=== PATIENT | female | born 1965 | race Caucasian/White ===

== ENCOUNTER 2023-10-16 19:53 | Emergency (ER) | payer OTHER | END 2023-10-16 20:00 | disposition left against medical advice (07) | LOC: SED 19:53 | DX: S01.112A Laceration without foreign body of left eyelid and periocular area, initial encounter (principal); Z79.899 Other long term (current) drug therapy; X58.XXXA Exposure to other specified factors, initial encounter; Y93.89 Activity, other specified; Y92.89 Other specified places as the place of occurrence of the external cause; Y99.8 Other external cause status | CPT/HCPCS: 99281 ==

== ENCOUNTER 2024-02-06 13:18 | Emergency (ER) | payer OTHER, MEDICAID ==
[~2024-02-06] VITALS: Ht 162.6 cm; Wt 72.6 kg
[2024-02-06 13:26] VITALS: BP_SYST 171; PULSE 106; RESP 18; TEMP 98.3; O2SAT 94
[2024-02-06] MEDS: MIDAZOLAM HCL 5 MG/5 ML VIAL IM ONE (14:41)
[2024-02-06] MEDS: OLANZapine IntraMuscular 10 MG VIAL (FOR I.M. INJECTION ONLY) IM ONE (14:42)
[2024-02-06] MEDS: MIDAZOLAM HCL 5 MG/ML VIAL (VERSED) IV ONE (14:43)
[2024-02-06 15:25] LABS: BILIRUBIN,URINE NEGATIVE (NEGATIVE); BLOOD, URINE NEGATIVE (NEGATIVE); CLARITY/URINE CLEAR (CLEAR); COLOR,URINE YELLOW (YELLOW); GLUCOSE,URINE NEGATIVE (NEGATIVE); KETONES,URINE 2+ (NEGATIVE); LEUKOCYTE ESTERASE ,URINE 1+ (NEGATIVE); NITRITE, URINE NEGATIVE (NEGATIVE); PROTEIN URINE TRACE (NEGATIVE); UROBILINOGEN,URINE 0.2 (0.2-1.0)
[2024-02-06 15:43] LABS: BASOPHILS # (AUTO) 0.1 K/uL (0.0-0.2); BASOPHILS % (AUTO) 0.6 % (0.0-2.0); HEMATOCRIT 39.5 % (36-48); HEMOGLOBIN 13.2 g/dL (12.0-16.0); LYMPHOCYTES # (AUTO) 0.8 K/uL (1.0-5.5); LYMPHOCYTES % (AUTO) 9.1 % (20.5-51.5); MEAN CORPUSCULAR HEMOGLOBIN 32 pg (27-31); MEAN CORPUSCULAR HGB CONC 33 % (32-36); MEAN CORPUSCULAR VOLUME 94 fL (79.0-98.0); MONOCYTES # (AUTO) 0.4 K/uL (0.0-1.0); MONOCYTES % (AUTO) 4.2 % (1.7-9.3); NEUTROPHILS # (AUTO) 7.3 K/uL (1.8-7.7); NEUTROPHILS % (AUTO) 86.1 % (40.0-70.0); PLATELET COUNT (AUTO) 356 K/uL (130-430); RED CELL DISTRIBUTION WIDTH 13.1 % (9.0-15.0); WHITE BLOOD COUNT (AUTO) 8.5 K/uL (4.8-10.8)
[2024-02-06 15:50] LABS: BILIRUBIN,DIRECT 0.2 mg/dL (0.0-0.3); CALCIUM 8.3 mg/dL (8.4-11.0); CREATININE 0.76 mg/dL (0.55-1.30); TOTAL BILIRUBIN 1.1 mg/dL (0.0-1.0); TOTAL PROTEIN, SERUM 7.5 g/dL (6.4-8.3)
[2024-02-06 15:53] LABS: POTASSIUM 2.6 mmol/L (3.5-5.1)
[2024-02-06 15:59] LABS: BACTERIA,URINE FEW /HPF (None Seen); RBC,URINE 0-3 /HPF (0-3)
[2024-02-06] MEDS: POTASSIUM CHLORIDE 20 MEQ/PKT PACKET PO ONE (17:33)
[2024-02-06] MEDS: SODIUM PHOSPHATE,MONO-DIBASIC 133 ML ENEMA RC ONE (17:34)
[2024-02-06] MEDS: MAGNESIUM SULFATE 50 ML IV ONE (17:46)
[2024-02-06] MEDS: KCL 40mEq in D5/0.45NS 1000 mL 1,000 ML IV ONE (18:02)
[2024-02-06] MEDS ORDERED: GLYC-137 RC (18:59)
[2024-02-06] MEDS ORDERED: POLY17PO4 PO (18:59)
[2024-02-06 19:42] VITALS: BP_SYST 125; PULSE 96; RESP 20; TEMP 97.6; O2SAT 98
== END 2024-02-06 19:42 | disposition home or self-care (01) ==
LOC: SED 13:18
DX: K59.00 Constipation, unspecified (principal); E87.6 Hypokalemia; R11.2 Nausea with vomiting, unspecified; R10.30 Lower abdominal pain, unspecified; Z79.899 Other long term (current) drug therapy
CPT/HCPCS: 99285; 74176; 96365; 80076; 80048; 81001; 83690; 85025; 87086; 36415; 93005; 96368; 96372; 81000; 81015; J2250; J3475; J3490